=== PATIENT | female | born 1990 | race Hispanic/Latino ===

== ENCOUNTER 2024-04-08 15:07 | Emergency (ER) | payer BC, SELFPAY ==
--- NOTE | ~2024-04-08 | XR_ITS ---
XR abdomen/kub 1V Ordering provider: Elvie Jacome NP History: . hypoactive bowel sounds, epigastric pain . Comparison: None. FINDINGS: BOWEL: Nonobstructive bowel gas pattern. ORGANOMEGALY: None. SIGNIFICANT PATHOLOGIC CALCIFICATIONS: None. OTHER: No free air is seen under the diaphragm. IMPRESSION: NO ACUTE ABDOMINAL FINDINGS. Reviewed, dictated and finalized at location A.
[2024-04-08 15:33] VITALS: BP 127/71; PULSE 87; RESP 16; TEMP 36.6; O2SAT 100
--- NOTE | 2024-04-08 16:14 | ED.NAVMDI ---
HPI - Nausea/Vomiting/Diarrhea General Chief complaint: Abdominal Pain Stated complaint: belly issues Time Seen by Provider: 04/08/24 16:14 Source: patient Mode of arrival: ambulatory Limitations: no limitations History of Present Illness HPI Narrative: 33 yo F presents with c/o fatigue, N/v/D starting this AM. Ate milk and cookies yesterday for dinner. Intermittent generalized abdominal cramping. No pain at this time. Vaginal delivery 3 weeks ago. Patient is . Afebrile. Denies urinary symptoms. All systems reviewed and negative except as noted above. Related Data Allergies Allergy/AdvReac Type Severity Reaction Status Date / Time No Known Allergies Allergy Unverified 04/08/24 16:14 Review of Systems Review of Systems: CONSTITUTIONAL: Denies fever, chills, or sweats. reports fatigue. EYES: Denies visual changes, redness, or discharge. ENT: Denies rhinorrhea, congestion, sore throat, or otalgia. CARDIOVASCULAR: Denies chest pain, palpitations, or edema. RESPIRATORY: Denies cough or dyspnea. GASTROINTESTINAL: Reports abdominal pain, nausea, vomiting, or diarrhea. GENITOURINARY: Denies dysuria or hematuria. SKIN: Denies rash or itching. MUSCULOSKELETAL: Denies back pain, joint pain, or myalgia. NEUROLOGIC: Denies headache, numbness, or weakness. PSYCHIATRIC: Denies anxiety or depression. All other systems reviewed are negative, except as documented in HPI. PMFSH Comments At time of signature, agree with nursing past medical, surgical, social and family history. There is no relevant family history pertinent to the presenting complaint. Exam Narrative: GENERAL: This is a well-nourished, well-developed patient, in no apparent distress. HEAD: normocephalic, atraumatic. EYES: PERRL. Sclera clear/white. Vision is grossly intact. EARS: External ears john NOSE: External nose normal THROAT: Mucous membranes moist, posterior pharynx clear NECK: Neck supple, non-tender without lymphadenopathy, masses or thyromegaly. CARDIOVASCULAR: Regular rate and rhythm without murmurs, gallops, or rubs. RESPIRATORY: Clear to auscultation. Breath sounds equal bilaterally. No wheezes, rales, or rhonchi. GASTROINTESTINAL: Abdomen soft, non-tender, nondistended. Bowel sounds are Hypoactive. No hepato-splenomegaly, or palpable masses. No guarding. SKIN: warm, Dry, intact with no suspicious lesions or rash, good texture and turgor. NEURO: awake, alert, and oriented to person, place and time. There were no obvious focal neurologic abnormalities. EXTREMITIES: No joint tenderness, effusion, or edema noted. Course Course Level of Care: Express Care Visit Vital Signs Vital signs: Vital Signs Temperature 36.6 C 04/08/24 15:33 Pulse Rate 87 04/08/24 15:33 Respiratory Rate 16 04/08/24 15:33 Blood Pressure 127/71 04/08/24 15:33 Pulse Oximetry 100 04/08/24 15:33 Oxygen Delivery Room Air 04/08/24 15:33 Temperature 36.6 C 04/08/24 15:33 Pulse Rate 87 04/08/24 15:33 Respiratory Rate 16 04/08/24 15:33 Blood Pressure 127/71 04/08/24 15:33 Pulse Oximetry 100 04/08/24 15:33 Oxygen Delivery Room Air 04/08/24 15:33 reviewed MDM - Nausea/Vomiting/Diarrhea MDM Narrative Medical decision making narrative: KUB normal. No abdominal tenderness on exam. Will prescribe Zofran for viral gastroenteritis. recommend increasing water. Will go to ER for any worsening of symptoms. Patient is aware of diagnosis, understands and agrees to treatment plan. Anticipatory guidance given. Patient agrees to follow-up as directed and is aware of reasons to seek care at the emergency department. Portions of this record may have been created with voice recognition software Differential Diagnosis Differential diagnosis: Likely food poisoning, gastroenteritis and dehydration Imaging Data My impression: agree with radiologist Radiologist's impression: XR abdomen/kub 1V Ordering pr
== END 2024-04-08 16:52 | disposition home or self-care (01) ==
PROVIDERS: Emergency Provider Nurse Practitioner Family
DX: O98.53 Other viral diseases complicating the puerperium (principal); A08.4 Viral intestinal infection, unspecified
CPT/HCPCS: 74018; 99213; G0463

== ENCOUNTER 2024-11-12 14:28 | Emergency (ER) | payer OTHER, SELFPAY ==
[2024-11-12 14:41] VITALS: BP 120/79; PULSE 83; RESP 16; TEMP 36.2; O2SAT 99
--- NOTE | 2024-11-12 16:17 | ED.BACK ---
HPI - Back Pain/Injury General Chief Complaint: Back Pain/Injury Stated Complaint: right side back pain Time Seen by Provider: 11/12/24 16:18 Source: patient, RN notes reviewed and old records reviewed Mode of arrival: ambulatory Limitations: no limitations History of Present Illness [facility] Narrative: Patient presents with complaints of right mid back pain that began a few days ago. She has been taking ibuprofen with poor relief. She denies any injury or trauma. She does report that she has been doing some heavy lifting. She denies any numbness or tingling. She denies any loss of bowel or bladder. She is observed lifting her toddler repeatedly throughout HPI exam Related Data Home Medications ?Medication ?Instructions ?Recorded ?Confirmed ?Last Taken ?Type medroxyprogesterone 150 mg/mL mg IM 11/12/24 Unknown History intramuscular suspension Allergies Allergy/AdvReac Type Severity Reaction Status Date / Time No Known Allergies Allergy Verified 11/12/24 14:30 Review of Systems Review of Systems: All systems reviewed & are unremarkable except as noted in HPI and below Constitutional: Constitutional: Reports no additional constitutional complaints ENT: Reports system reviewed and no additional complaints, except as documented Cardiovascular: Cardiovascular: Reports no additional cardiovascular complaints Respiratory: Respiratory: Reports no additional respiratory complaints Gastrointestinal: Gastrointestinal: Reports no additional gastrointestinal complaints Musculoskeletal: Musculoskeletal: Reports no additional musculoskeletal complaints and Reports as per [facility] Comments At the time of my signature, I reviewed and agree with the nursing past medical, surgical, social, and family history. There is no relevant family history pertinent to the patient complaint. Exam Const: General: cooperative, no acute distress, alert and awake Orientation/consciousness: oriented to person, oriented to place and oriented to time HENMT: Head: normal to inspection Resp: Effort & Inspection: normal respiratory effort and able to speak in complete sentences Auscultation: clear to auscultation bilaterally, no crackles, no rales, no rhonchi and no wheezes Cardio: Palpation: normal PMI Rate: regular rate Rhythm: regular rhythm Heart sounds: S1 normal heart sound present and S2 normal heart sound present Back/Spine/Pelvis: Back/spine/pelvis image:  1. tenderness Neuro: General: oriented to person, oriented to place and oriented to time Cranial nerves: Yes CN's II-XII intact bilaterally Psych: Appearance: grossly normal Thought process: Normal thought process present Insight: Good insight present (Psych) Judgement: Good judgement present (Psych) Course Course Level of Care: Express Care Visit Vital Signs Vital signs: Vital Signs Temperature 97.1 F L 11/12/24 14:41 Pulse Rate 83 11/12/24 14:41 Respiratory Rate 16 11/12/24 14:41 Blood Pressure 120/79 11/12/24 14:41 Pulse Oximetry 99 11/12/24 14:41 Oxygen Delivery Room Air 11/12/24 14:41 Temperature 97.1 F L 11/12/24 14:41 Pulse Rate 83 11/12/24 14:41 Respiratory Rate 16 11/12/24 14:41 Blood Pressure 120/79 11/12/24 14:41 Pulse Oximetry 99 11/12/24 14:41 Oxygen Delivery Room Air 11/12/24 14:41 Reviewed MDM - Back Pain/Injury Differential Diagnosis Differential diagnosis: Likely strain of lumbar region and thoracic back pain Medical Records Attestation: I reviewed the patient's medical records. Discharge Plan Discharge Clinical Impression: Back pain Qualifiers: Back pain location: thoracic back pain Chronicity: acute Back pain laterality: right Qualified Code(s): M54.6 - Pain in thoracic spine Patient Disposition: Home, Self-Care Condition: Stable Instructions: Antibiotic Form, Back Pain (ED) Additional Instructions: Take medications as prescribed. Follow-up with primary care provider. Emergency department for new or worse symptoms Patient Language: [place] Island[place] Prescriptions: New prednisone 50 mg tablet 50 mg PO DAILY Qty: 5 0RF No Action medroxyprogesterone 150 mg/mL suspension IM Follow-up/Referrals: [facility] [Primary Care Provider] - Time of Disposition: 16:30
== END 2024-11-12 16:30 | disposition home or self-care (01) ==
PROVIDERS: Emergency Provider Nurse Practitioner Family
DX: M54.6 Pain in thoracic spine (principal)
CPT/HCPCS: 99213; G0463